=== PATIENT | male | born 1965 | race Caucasian/White ===

== ENCOUNTER 2017-03-13 11:14 | Emergency (ER) | payer SELFPAY ==
[~2017-03-13] VITALS: Ht 185.4 cm; Wt 78.0 kg
[2017-03-13 11:15] VITALS: BP 146/84; PULSE 96; RESP 20; TEMP 98.6; O2SAT 98
--- NOTE | 2017-03-13 12:24 | PD ---
HPI Chief Complaint: Burn Time Seen by Provider: 12:23 Travel History International Travel<30 days: No Contact w/Intl Traveler<30days: No Traveled to known affect area: No Allergies-Medications (Allergen,Severity, Reaction): Coded Allergies: No Known Allergies (Unverified , 03/13/17) Data Data Last Documented VS Vital Signs Date Time Temp Pulse Resp B/P (MAP) Pulse Ox O2 Delivery O2 Flow Rate FiO2 03/13/17 11:15 98.6 96 20 146/84 (104) 98 Room Air MDM Medical Decision Making Medical Screen Exam Complete: Yes Emergency Medical Condition: Yes Medical Record Reviewed: Yes Condition: Stable Uyen Arriola Mar 13, 2017 12:24
[2017-03-13] MEDS ORDERED: IBUPROFEN 600 MG TAB PO ONE (12:45)
[2017-03-13] MEDS ORDERED: SILV1CRE20 TOPICAL (13:01)
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
== END 2017-03-13 13:19 | disposition home or self-care (01) ==
LOC: NEPK 11:14
DX: T25.122A Burn of first degree of left foot, initial encounter (principal); X12.XXXA Contact with other hot fluids, initial encounter
CPT/HCPCS: 99283